=== PATIENT | male | born 1980 | race American Indian/Alaskan Native ===

== ENCOUNTER 2018-06-02 00:06 | Emergency (ER) | payer SELFPAY ==
[2018-06-02 00:11] VITALS: BP 118/82; PULSE 101; RESP 20; TEMP 98.2; O2SAT 96
[2018-06-02] MEDS ORDERED: Lidocaine 1% MPF (30 ml) Inj EPI STA (00:26)
[2018-06-02] MEDS ORDERED: Bacitracin 500 Units/gm Oint Foilpak UD ONE ×2 (00:43→00:45)
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
== END 2018-06-02 01:51 | disposition home or self-care (01) ==
LOC: C.ER 00:06
DX: S01.512A Laceration without foreign body of oral cavity, initial encounter (principal); S01.81XA Laceration without foreign body of other part of head, initial encounter; Y04.0XXA Assault by unarmed brawl or fight, initial encounter; Z72.0 Tobacco use

== ENCOUNTER 2018-06-04 08:07 | Emergency (ER) | payer SELFPAY ==
[2018-06-04 08:20] VITALS: O2SAT 99
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
[2018-06-04 08:47] VITALS: BP 118/75; PULSE 70; RESP 16; TEMP 98.4
== END 2018-06-04 08:43 | disposition home or self-care (01) ==
LOC: C.ER 08:07
DX: Z48.00 Encounter for change or removal of nonsurgical wound dressing (principal)

== ENCOUNTER 2018-10-21 12:25 | Emergency (ER) | payer SELFPAY ==
[2018-10-21 12:34] VITALS: BP 134/80; PULSE 87; RESP 20; TEMP 97.9; O2SAT 99
--- NOTE | 2018-10-21 13:36 | C.PDOC ---
History Of Present Illness 38 y/o male with PMHx of pneumonia 1 year ago, presents to the ED today for complaints of cough associated with back pain and chest wall discomfort for the last few days. No documented fevers however patient reports feeling fatigued and tired. He denies any sore throat, headache, nausea, vomiting, diarrhea, and neck pain. Did not receive flu shot this season. Time Seen by Provider: 10/21/18 12:56 Chief Complaint (Nursing): Cough, Cold, Congestion History Per: Patient History/Exam Limitations: no limitations Onset/Duration Of Symptoms: Days Current Symptoms Are (Timing): Still Present Sick Contacts (Context): None Associated Symptoms: Cough, Myalgias Past Medical History Reviewed: Historical Data, Nursing Documentation, Vital Signs Vital Signs: Last Vital Signs Temp 97.9 F 10/21/18 12:30 Pulse 87 10/21/18 12:30 Resp 20 10/21/18 12:30 BP 134/80 10/21/18 12:30 Pulse Ox 99 10/21/18 12:30 - Medical History PMH: Hepatitis (C) Surgical History: No Surg Hx Family History: States: Unknown Family Hx - Social History Hx Tobacco Use: Yes Hx Alcohol Use: Yes Hx Substance Use: No - Immunization History Hx Tetanus Toxoid Vaccination: Yes Hx Influenza Vaccination: No Hx Pneumococcal Vaccination: No Review Of Systems Except As Marked, All Systems Reviewed And Found Negative. Constitutional: Positive for: Malaise, Other (Fatigue). Negative for: Fever, Chills ENT: Positive for: Nose Congestion Cardiovascular: Positive for: Chest Pain (with cough). Negative for: Palpitations Respiratory: Positive for: Cough. Negative for: Shortness of Breath, Pleuritic Pain Gastrointestinal: Negative for: Nausea, Vomiting, Abdominal Pain, Diarrhea Musculoskeletal: Positive for: Back Pain (with cough) Neurological: Negative for: Weakness, Headache Physical Exam - Physical Exam Appears: Non-toxic, No Acute Distress Skin: Warm, Dry, No Rash Head: Atraumatic, Normacephalic Eye(s): bilateral: Normal Inspection, PERRL, EOMI Nose: Normal Oral Mucosa: Moist Throat: Normal, No Erythema, No Exudate Neck: Normal ROM Chest: Symmetrical Cardiovascular: Rhythm Regular, No Murmur Respiratory: Normal Breath Sounds, No Rales, No Rhonchi, No Wheezing Extremity: Bilateral: Atraumatic, Normal Color And Temperature, Normal ROM Neurological/Psych: Oriented x3, Normal Speech ED Course And Treatment O2 Sat by Pulse Oximetry: 99 (RA) Pulse Ox Interpretation: Normal Medical Decision Making Medical Decision Making: Impression: cough, flu-like symptoms Plan: --Motrin 600 mg PO --Tylenol 975 mg PO --Tamiflu 75 mg PO --Chest x-ray Disposition Counseled Patient/Family Regarding: Studies Performed, Diagnosis, Need For Followup, Rx Given - Disposition Referrals: [facility] [Outside] Disposition: HOME/ ROUTINE Disposition Time: 14:36 Condition: STABLE Prescriptions: Ibuprofen [Motrin] 600 mg PO TID #15 tab Instructions: Upper Back Pain Forms: [employer] (Egyptian), General Discharge Instructions - POA Present On Arrival: None - Clinical Impression Clinical Impression: Back pain - Scribe Statement The provider has reviewed the documentation as recorded by the Scribe Nathaly Ahn Provider Attestation: All medical record entries made by the Scribe were at my direction and personally dictated by me. I have reviewed the chart and agree that the record accurately reflects my personal performance of the history, physical exam, medical decision making, and the department course for this patient. I have also personally directed, reviewed, and agree with the discharge instructions and d isposition.
--- NOTE | 2018-10-21 14:22 | RAD ---
HISTORY: back pain, hx of pneumonia COMPARISON: Chest x-ray performed 01/01/15 TECHNIQUE: Chest PA and lateral FINDINGS: LUNGS: Bilateral streaky infiltrates and/or scarring/fibrosis involving the right greater than left upper lobes Please note that chest x-ray has limited sensitivity for the detection of pulmonary masses. PLEURA: No significant pleural effusion identified. No definite pneumothorax . CARDIOVASCULAR: Heart size appears within normal limits. No atherosclerotic calcification present. OSSEOUS STRUCTURES: Mild degenerative changes. VISUALIZED UPPER ABDOMEN: Unremarkable. OTHER FINDINGS: None. IMPRESSION: Bilateral streaky infiltrates and/or scarring/fibrosis involving the right greater than left upper lobes.
== END 2018-10-21 14:43 | disposition home or self-care (01) ==
LOC: C.ER 12:25
DX: M54.9 Dorsalgia, unspecified (principal); Z72.0 Tobacco use